=== PATIENT | male | born 1935 | race Caucasian/White ===

== ENCOUNTER 2021-09-17 21:05 | Inpatient (IN) | payer MEDICARE, OTHER ==
[2021-09-17] VITALS (9 sets, daily range): BP systolic 116–158; BP diastolic 51–73
[~2021-09-17] VITALS: Ht 182.9 cm; Wt 77.0 kg
--- NOTE | 2021-09-17 21:19 | NUR ---
PT TO ED ROOM 11 FOR TRIAGE, ACCOMPANIED BY HIS .
[2021-09-17 21:45] LABS: HEMATOCRIT 39.1 % (39.0-50.0); MEAN CELL VOLUME 90.1 fL CALC (80.0-100.0); MEAN CORPUSCULAR HGB 27.6 pG CALC (26.0-32.0); MEAN CORPUSCULAR HGB CONC 30.7 g/dL CAL (32.0-36.0); NEUT# 3.01 thou/uL (1.82-7.42); RED BLOOD COUNT 4.34 mill/uL (4.70-6.10); RED CELL DISTRI WIDTH 14.8 % (11.5-15.5)
[2021-09-17] MEDS ORDERED: JARDIANCE10 MG PO (21:48)
[2021-09-17] MEDS ORDERED: CRESTOR40 MG PO (21:48)
[2021-09-17] MEDS ORDERED: CILOSTAZOL100 MG PO (21:49)
[2021-09-17] MEDS ORDERED: LISINOPRIL10 MG PO (21:49)
[2021-09-17] MEDS ORDERED: LEVOTHYROXIN75 MCG PO (21:50)
[2021-09-17] MEDS ORDERED: GLIPIZIDE10 M2 PO (21:50)
[2021-09-17] MEDS ORDERED: METFORMIN HCL1000 MG PO (21:50)
--- NOTE | 2021-09-17 21:52 | NUR ---
PT RESTING COMFORTABLY. DENIES ANY CP AT THIS TIME. BREATHING EVEN AND UNLABORED. VSS. PT AND UPDATED ON POC. PT STABLE.
[2021-09-17 22:03] LABS: ALBUMIN 4.2 g/dL (3.2-5.0); BILIRUBIN, TOTAL 0.3 mg/dL (0.0-1.4); CREATININE 1.7 mg/dL (0.7-1.3); D-DIMER 1.04 mg/L (0.19-0.60); POTASSIUM 4.2 mmol/l (3.5-5.1); TOTAL PROTEIN 7.2 g/dL (6.3-8.2)
[2021-09-17 22:07] LABS: ACT PARTIAL THROMBO TIME 25.5 SECONDS (20.0-32.5); PROTHROMBIN TIME 10.4 SECONDS (9.0-12.5)
--- NOTE | 2021-09-17 23:15 | NUR ---
PT RESTING IN BED WITH AT BEDSIDE. PT DENIES CHEST PAIN AT THIS TIME. NO DISTRESS.
[2021-09-18] VITALS (25 sets, daily range): BP systolic 114–182; BP diastolic 53–79
--- NOTE | 2021-09-18 00:20 | NUR ---
PT C/O HEAVINESS L CHEST DR John INFORMED EKG REPEATED AND PT MEDEICATED FOR PAIN THAT WAS AN 8 ON 0-10 SCALE BUT NOT IS A 5 ON SCALE
--- NOTE | 2021-09-18 00:21 | NUR ---
NO SWEATS NO NAUSEA NO SOB.SR NO ST T CHANGES NO ECTOPY
--- NOTE | 2021-09-18 01:24 | NUR ---
DENIES PAIN AT THIS TIME. PT AGREES WITH PLAN FOR ADMISSION
--- NOTE | 2021-09-18 01:32 | NUR ---
PT ON TELEBOX 3. REPORT GIVEN TO DOMINGUEZ KINGSLEY
--- NOTE | 2021-09-18 01:34 | NUR ---
Admission Note Report Given to: SANCHO Transported by: Wheelchair X Stretcher Transported with: X Nurse Transporter X Patent IV O2 X Recreation Director Location: ICU X MS2
--- NOTE | 2021-09-18 01:45 | NUR ---
RECEIVE REPORT FROM THADDEUS FROM ER, PATIENT ARRIVED TO UNIT AT 0145 IN WHEELCHAIR ACCOMPANIED BY ER STAFF. PATIENT A&O X4 ABLE TO MAKE NEEDS KNOW. PT ORRIENTED TO ROOM AND CALL LIGHT SYSTEM. PT 20G IV TO RAC PATENT AND FLUSHES WELL. DENIES CHEST DISCOMFORT AT THIS TIME. ACCUCHECK DONE 70, FOOD PROVIDED. CALL LIGHT WITHIN REACH. WILL CONTINIUE TO MONITOR.
--- NOTE | 2021-09-18 04:30 | NUR ---
PATIENT RESTING IN BED WITH EYES CLOSED, BREATHING EVEN AND UNLABORED, NO S/S OF PAIN OR DISCOMFORT NOTED AT THIS TIME. CALL LIGHT IN REACH. WILL CONTINUE TO MONITOR.
--- NOTE | 2021-09-18 06:09 | NUR ---
NITROGLYCERIN APPLYED TO RIGHT UPPER ARM. OLD NITRO. REVOMED AND AREA CLEAN.
--- NOTE | 2021-09-18 06:12 | NUR ---
MADE AWARE CRITICALLY HIGN TROPONIN 0.364 FROM 0.022, REPAET EKG DONE AT 0530, PATIENT DENIES CHEST DISCOMFORTS, VITAL SIGNS FOLLOWS: BP 130/53 SPO2 @ 94% ON ROOM AIR HR 63, RESPIRATION AT 17, MD MADE AWARE OF REPEAT EKG 1T 0530. ORDER TO REPEAT TROPONIN AFTER 2 HOURS AND TO TRANSFER ICU AND TO START HEPARIN DRIP.
--- NOTE | 2021-09-18 06:56 | NUR ---
REPORT GIVEN TO ICU NURSE SHILA, PATIENT MOVED TO ICU BED 3.
--- NOTE | 2021-09-18 07:19 | NUR ---
TRIED TO CALL PATIENT SIGNIFICANT OTHER, JUST WENT TO [employer], LEFT MESSAGE TO CALL BACK. ICU NURSE SHILA MADE AWARE.
--- NOTE | 2021-09-18 07:59 | NUR ---
PT ARRIVES TO ROOM 3 IN THE ICU VIA STRETCHER THIS MORNING, ACCOMPANIED BY HIS NURSE JENNIFER. PT IS ALERT AND ORIENTED X 3, AMBULATORY. PT DENIES CHEST PAIN OR SHORTNESS OF BREATH AT THIS TIME. PT WILL LET NURSING KNOW IF THAT CHANGES. HEPARIN DRIP STARTED AT LOW SCALE OF 1000 UNITS HOURLY, NO BOLUS. LAB ZULEIMA PTT AND TROPONIN LEVELS. TROPONIN WAS 0.514, DR GREEN MADE AWARE. PT KEPT NPO AT THIS TIME FOR POSSIBLE TRANSFER TO [facility].
[2021-09-18] MEDS ORDERED: ASPIRIN LOW DOS81 M1 PO (09:02)
[2021-09-18] MEDS ORDERED: NITROGLYCERIN0.4 MG SL (09:04)
--- NOTE | 2021-09-18 11:56 | NUR ---
PT'S IS NOW AT BEDSIDE, WAITS WITH HIM FOR BED AT [facility]. NO COMPLAINT OR CHEST PAIN, SHORTNESS OF BREATH, OR OTHER. VSS. SR ON MONITOR. PT REMAINS NPO FOR POSSIBLE PROCEDURE UPON ARRIVAL TO [facility].
--- NOTE | 2021-09-18 14:09 | NUR ---
NOTHING HAS CHANGED REGARDING PT TRANSFER TO [facility]. PT HAS BEEN ACCEPTED THERE, TRANSPORT PENDING BED OPENING.
--- NOTE | 2021-09-18 14:33 | NUR ---
HR SEEN TO JUMP TO 125 WHEN HE IS SEEN USING THE URINAL. REMAINS AT BEDSIDE.
--- NOTE | 2021-09-18 16:02 | NUR ---
PT AND AWARE OF TRANSFER DELAY, SCHEDULED FOR 1930 NOW. PT DENIES CHEST PAIN. HR REMAINS AROUND 60 WITH OCCASIONAL PVCs. SANDWICH PROVIDED PER PT NOT NPO.
--- NOTE | 2021-09-18 19:00 | NUR ---
REPORT RECEIVED FROM Rebecca QUICK RN AT BEDSIDE. CARE OF PT ASSUMED AT THIS TIME. PT DENIES CURRENT NEEDS OR C/O AT THIS TIME. PLAN OF CARE REVIEWED WITH PT. PT VERBALIZES UNDERSTANDING AND DENIES QUESTIONS. CALL WINN WITHIN REACH, AGREES TO CALL PRN.
--- NOTE | 2021-09-18 19:09 | NUR ---
CALL PLACED TO [facility] ANSWERING SERVICE. PER MOLD STAMPER ETA APPROX 2100.
--- NOTE | 2021-09-18 19:13 | NUR ---
RETURN CALL RECEIVED FROM [employer] UPDATING ETA TO APPROX 2014. PT MADE AWARE.
--- NOTE | 2021-09-18 20:35 | NUR ---
CALL PLACED TO PT'S [facility] TO [facility]. NO ANSWER. VOICE MAIL LEFT ADVSING PT HAS BEEN PICKED UP FOR TRANSFER AT THIS TIME.
--- NOTE | 2021-09-18 20:37 | NUR ---
PT LEAVES VIA STRETCHER, SECURED AND ON PURCHASING MANAGER/SALES WITH HEPARIN GTT INFUSING. ACCOMPANIED BY [facility].
--- NOTE | 2021-09-18 20:45 | NUR ---
TELEPHONE REPORT CALLED TO SONIA MIX AT [facility] AT THIS TIME.
== END 2021-09-18 20:37 | disposition short-term general hospital (02) | DRG 282 ==
LOC: ED 21:05 → ED-I 09-18 00:23 → ED 09-18 00:49 → MS2 09-18 00:50 → ICU 09-18 00:50 → MS2 09-18 00:50 → ICU 09-18 06:43
PROVIDERS: Family Medicine; ADMIT Internal Medicine; ATTEND Hospitalist
DX: I21.4 Non-ST elevation (NSTEMI) myocardial infarction (principal); I10 Essential (primary) hypertension; E11.9 Type 2 diabetes mellitus without complications; I25.10 Atherosclerotic heart disease of native coronary artery without angina pectoris; I25.2 Old myocardial infarction; Z95.5 Presence of coronary angioplasty implant and graft; Z79.84 Long term (current) use of oral hypoglycemic drugs; Z86.73 Personal history of transient ischemic attack (TIA), and cerebral infarction without residual deficits; Z88.8 Allergy status to other drugs, medicaments and biological substances; Z20.822 Contact with and (suspected) exposure to COVID-19
CPT/HCPCS: J1644; J1650; Q9967